=== PATIENT | female | born 1965 | race Caucasian/White ===

== ENCOUNTER 2022-01-21 10:04 | Emergency (ER) | payer MEDICAID ==
[~2022-01-21] VITALS: Ht 154.9 cm; Wt 74.8 kg
[2022-01-21 10:24] VITALS: BP_SYST 135
[2022-01-21 11:20] VITALS: BP_SYST 134
== END 2022-01-21 11:21 | disposition home or self-care (01) ==
LOC: SED 10:04
DX: R51.9 Headache, unspecified (principal); R10.13 Epigastric pain; R11.2 Nausea with vomiting, unspecified; T50.901A Poisoning by unspecified drugs, medicaments and biological substances, accidental (unintentional), initial encounter; Y92.89 Other specified places as the place of occurrence of the external cause
CPT/HCPCS: 99281

== ENCOUNTER 2023-05-08 12:01 | Emergency (ER) | payer BC, MEDICAID ==
[~2023-05-08] VITALS: Ht 152.4 cm; Wt 74.8 kg
[2023-05-08 12:02] VITALS: BP_SYST 132; PULSE 82; RESP 18; TEMP 97.6; O2SAT 97
[2023-05-08 13:03] LABS: CLARITY/URINE CLEAR (CLEAR); COLOR,URINE AMBER (YELLOW); PH,URINE 6.5 (5.0-8.0)
[2023-05-08 13:04] LABS: BILIRUBIN,URINE NEGATIVE (NEGATIVE); BLOOD, URINE NEGATIVE (NEGATIVE); GLUCOSE,URINE NEGATIVE (NEGATIVE); KETONES,URINE NEGATIVE (NEGATIVE); LEUKOCYTE ESTERASE ,URINE 1+ (NEGATIVE); NITRITE, URINE POSITIVE (NEGATIVE); PROTEIN URINE NEGATIVE (NEGATIVE)
[2023-05-08 13:05] LABS: BACTERIA,URINE FEW /HPF (None Seen); RBC,URINE 0-3 /HPF (0-3)
[2023-05-08] MEDS ORDERED: TRAM50TA2 PO (13:21)
[2023-05-08] MEDS ORDERED: CEPH-548 PO (13:21)
[2023-05-08 13:46] VITALS: BP_SYST 126; PULSE 79; RESP 18; TEMP 97.6; O2SAT 94
== END 2023-05-08 13:45 | disposition home or self-care (01) ==
LOC: SED 12:01
DX: N39.0 Urinary tract infection, site not specified (principal); R30.0 Dysuria; R35.0 Frequency of micturition; R39.15 Urgency of urination; Z79.899 Other long term (current) drug therapy
CPT/HCPCS: 81000; 87086; 99283

== ENCOUNTER 2024-02-17 19:18 | Emergency (ER) | payer BC ==
[~2024-02-17] VITALS: Ht 152.4 cm; Wt 73.5 kg
[~2024-02-17 19:18] MED LIST: CEPH-548 PO; TRAM50TA2 PO
[2024-02-17 19:32] VITALS: BP_SYST 124; PULSE 73; RESP 16; TEMP 98; O2SAT 97
[2024-02-17 20:01] LABS: BASOPHILS # (AUTO) 0.1 K/uL (0.0-0.2); BASOPHILS % (AUTO) 1.4 % (0.0-2.0); EOSINOPHILS # (AUTO) 0.2 K/uL (0.0-0.4); EOSINOPHILS % (AUTO) 2.9 % (0.0-4.0); HEMATOCRIT 38.3 % (36-48); HEMOGLOBIN 13.4 g/dL (12.0-16.0); LYMPHOCYTES # (AUTO) 2.2 K/uL (1.0-5.5); MEAN CORPUSCULAR HEMOGLOBIN 30 pg (27-31); MEAN CORPUSCULAR HGB CONC 35 % (32-36); MEAN CORPUSCULAR VOLUME 86 fL (79.0-98.0); MONOCYTES # (AUTO) 0.6 K/uL (0.0-1.0); MONOCYTES % (AUTO) 11.1 % (1.7-9.3); NEUTROPHILS # (AUTO) 2.5 K/uL (1.8-7.7); NEUTROPHILS % (AUTO) 45.6 % (40.0-70.0); PLATELET COUNT (AUTO) 231 K/uL (130-430); RED BLOOD CELL COUNT(AUTO) 4.45 MIL/uL (4.2-6.2); RED CELL DISTRIBUTION WIDTH 13.2 % (9.0-15.0); WHITE BLOOD COUNT (AUTO) 5.5 K/uL (4.8-10.8)
[2024-02-17 20:28] LABS: ANION GAP 9 (5-15); CALCIUM 8.5 mg/dL (8.4-11.0); CARBON DIOXIDE 23 mmol/L (23-29); CHLORIDE 104 mmol/L (98-107); CREATININE 0.87 mg/dL (0.55-1.30); GFR AFRICAN AMERICAN 87 mL/min (>90); GLUCOSE 186 mg/dL (74-106); SODIUM SERUM 136 mmol/L (136-145); UREA NITROGEN, BLOOD 20 mg/dL (8-21)
[2024-02-17 20:29] LABS: GFR NON AFRICAN-AMERICAN 72 mL/min (>90)
[2024-02-17] MEDS: ASPIRIN 325 MG TABLET PO ONE (20:53)
[2024-02-17 22:50] VITALS: BP_SYST 134; PULSE 69; RESP 20; TEMP 97.8
[2024-02-17 23:08] VITALS: O2SAT 97
== END 2024-02-17 22:50 | disposition home or self-care (01) ==
LOC: SED 19:18
DX: R07.89 Other chest pain (principal); R20.0 Anesthesia of skin; J45.909 Unspecified asthma, uncomplicated; E11.9 Type 2 diabetes mellitus without complications; Z79.899 Other long term (current) drug therapy; Z79.2 Long term (current) use of antibiotics
CPT/HCPCS: 36415; 71045; 80048; 84484; 85025; 93005; 99285